=== PATIENT | male | born 1935 ===

== ENCOUNTER 2016-12-30 16:59 | Inpatient (IN) | payer MEDICARE ==
[2016-12-30] MEDS ORDERED: LISINOPRIL-HCT1 EAC3 PO (17:26)
[2016-12-30] MEDS ORDERED: ZOCOR20 M1 PO (17:27)
[2016-12-30] MEDS ORDERED: NORVASC10 M2 PO (17:27)
[2016-12-30 17:39] LABS: BASO % 0.1 % (0-2); EOS % 1.3 % (0-7); EOSINOPHIL ABSOLUTE COUNT 0.1 tho/cmm (0.0-0.7); HCT-HEMATOCRIT 40.8 % (36.0-53.5); HGB-HEMOGLOBIN 14.5 gm/dl (13.5-17.0); IMMATURE GRANULOCYTES ABSOLUTE 0.01 tho/cmm (0-0.03); IMMATURE GRANULOCYTES PERCENT 0.1 % (0-0.3); LYMPH % 14.5 % (20-45); MCHC MEAN CORPUSCULAR HGB CONC 35.5 % (32.0-36.0); MCV (MEAN CELL VOLUME) 90.1 fl (82.0-96.0); MEAN PLATELET VOLUME 8.2 cmc (9.4-12.4); MONO % 10.9 % (0-12); MONOCYTE ABSOLUTE COUNT 0.8 tho/cmm (0.0-1.2); NEUTROPHILS % 73.1 % (40-80); PLATELET COUNT 254 tho/cmm (150-450); RED BLOOD COUNT 4.53 mil/cmm (4.40-5.70); RED CELL DISTRIBUTION WIDTH 12.4 % (12.4-16.4); WHITE BLOOD COUNT 6.9 tho/cmm (4.0-10.0)
[2016-12-30 18:01] LABS: ALB/GLOB RATIO 0.8 (0.8-2.0); ALBUMIN 3.8 g/dl (3.5-5.0); ALKALINE PHOSPHATASE 42 U/L (33-138); ALT/SGPT 22 U/L (12-78); BILIRUBIN,TOTAL 0.6 mg/dl (0.0-1.5); BLOOD UREA NITROGEN 15 mg/dl (6-24); CALCIUM 8.8 mg/dl (8.5-10.5); CARBON DIOXIDE-VENOUS 27 mmol/L (22-32); CHLORIDE 95 mmol/l (96-110); CREATININE 1.01 mg/dl (0.60-1.30); GLUCOSE 96 mg/dL (70-110); LIPASE 173 U/L (73-393); SODIUM 133 mmol/L (135-145); eGFR VALUE FOR BLACK 82 mL/Min
[2016-12-30 18:02] LABS: ESR-ERYTHROCYTE SED RATE 26 mm/hr (0-20)
[2016-12-30 18:05] LABS: TSH-THYROID STIMULATING HORM. 1.99 uIU/ml (0.40-3.80)
[2016-12-30 18:08] LABS: ANION GAP 15 mmol/L (0-20); AST/SGOT 28 U/L (10-40); POTASSIUM 4.2 mmol/L (3.7-5.1)
[2016-12-30 18:10] LABS: URINE BILIRUBIN NEGATIVE (NEG); URINE BLOOD SMALL (NEG); URINE GLUCOSE (UA) NEGATIVE (NEG); URINE KETONE NEGATIVE (NEG); URINE LEUKOCYTE ESTERASE NEGATIVE (NEG); URINE NITRITE NEGATIVE (NEG); URINE PROTEIN LARGE (NEG)
[2016-12-30 18:12] LABS: URINE APPEARANCE HAZY; URINE COLOR YELLOW
[2016-12-30 18:13] LABS: URINE EPITHELIAL CELLS RARE /[HPF] (0-10); URINE RBC RARE /[HPF] (0-5); URINE WBC RARE /[HPF] (0-5)
[2016-12-30] MEDS ORDERED: VITAMIN D400 UNI3 (22:43)
[2016-12-30] MEDS ORDERED: ASPIRIN EC81 MG PO (22:43)
[2016-12-31 05:25] LABS: HCT-HEMATOCRIT 40.8 % (36.0-53.5); HGB-HEMOGLOBIN 14.6 gm/dl (13.5-17.0); LYMPH % 14.9 % (20-45); LYMPH ABSOLUTE COUNT 0.5 tho/cmm (0.8-4.5); MCH (MEAN CORPUSCULAR HGB) 32.2 pg (28.0-32.0); MCHC MEAN CORPUSCULAR HGB CONC 35.8 % (32.0-36.0); MCV (MEAN CELL VOLUME) 89.9 fl (82.0-96.0); MEAN PLATELET VOLUME 8.1 cmc (9.4-12.4); MONO % 0.3 % (0-12); NEUTROPHIL ABSOLUTE COUNT 2.6 tho/cmm (1.6-8.0); NEUTROPHIL-AUTOMATED 2.6 tho/cmm (1.6-8.0); NEUTROPHILS % 84.8 % (40-80); PLATELET COUNT 262 tho/cmm (150-450); RED BLOOD COUNT 4.54 mil/cmm (4.40-5.70); RED CELL DISTRIBUTION WIDTH 12.3 % (12.4-16.4)
[2016-12-31 05:34] LABS: ANION GAP 13 mmol/L (0-20); BLOOD UREA NITROGEN 12 mg/dl (6-24); CALCIUM 8.8 mg/dl (8.5-10.5); CARBON DIOXIDE-VENOUS 25 mmol/L (22-32); CHLORIDE 100 mmol/l (96-110); CREATININE 0.99 mg/dl (0.60-1.30); GLUCOSE 133 mg/dL (70-110); POTASSIUM 4.1 mmol/L (3.7-5.1); SODIUM 134 mmol/L (135-145); eGFR VALUE FOR BLACK 84 mL/Min
[2016-12-31 05:41] LABS: PROTHROMBIN TIME 11.4 SECONDS (9.0-13.6)
[2016-12-31 05:47] LABS: WHITE BLOOD COUNT 3.1 tho/cmm (4.0-10.0)
[2017-01-01 05:59] LABS: HGB-HEMOGLOBIN 13.6 gm/dl (13.5-17.0); IMMATURE GRANULOCYTES ABSOLUTE 0.01 tho/cmm (0-0.03); IMMATURE GRANULOCYTES PERCENT 0.2 % (0-0.3); LYMPH % 4.4 % (20-45); LYMPH ABSOLUTE COUNT 0.3 tho/cmm (0.8-4.5); MCH (MEAN CORPUSCULAR HGB) 31.8 pg (28.0-32.0); MCHC MEAN CORPUSCULAR HGB CONC 34.9 % (32.0-36.0); MCV (MEAN CELL VOLUME) 91.1 fl (82.0-96.0); MEAN PLATELET VOLUME 8.7 cmc (9.4-12.4); MONO % 0.9 % (0-12); MONOCYTE ABSOLUTE COUNT 0.1 tho/cmm (0.0-1.2); NEUTROPHIL ABSOLUTE COUNT 6.2 tho/cmm (1.6-8.0); NEUTROPHIL-AUTOMATED 6.2 tho/cmm (1.6-8.0); NEUTROPHILS % 94.5 % (40-80); PLATELET COUNT 237 tho/cmm (150-450); RED BLOOD COUNT 4.28 mil/cmm (4.40-5.70); RED CELL DISTRIBUTION WIDTH 12.6 % (12.4-16.4)
[2017-01-01 06:12] LABS: WHITE BLOOD COUNT 6.6 tho/cmm (4.0-10.0)
[2017-01-01 06:32] LABS: ALBUMIN 3.1 g/dl (3.5-5.0); ALT/SGPT 21 U/L (12-78); BLOOD UREA NITROGEN 14 mg/dl (6-24); CALCIUM 8.4 mg/dl (8.5-10.5); CARBON DIOXIDE-VENOUS 24 mmol/L (22-32); CHLORIDE 104 mmol/l (96-110); CREATININE 0.88 mg/dl (0.60-1.30); GLUCOSE 123 mg/dL (70-110); SODIUM 136 mmol/L (135-145); eGFR VALUE FOR BLACK >90 mL/Min
[2017-01-01 06:34] LABS: ALB/GLOB RATIO 0.7 (0.8-2.0); ALKALINE PHOSPHATASE 37 U/L (33-138)
[2017-01-01 06:40] LABS: ANION GAP 12 mmol/L (0-20); AST/SGOT 19 U/L (10-40); BILIRUBIN,TOTAL 0.2 mg/dl (0.0-1.5); POTASSIUM 4.2 mmol/L (3.7-5.1)
[2017-01-02] MEDS ORDERED: ZOFRAN4 M2 PO (15:22)
[2017-01-02] MEDS ORDERED: DECADRON PO (15:22)
[2017-01-02] MEDS ORDERED: TED HOSE (15:23)
== END 2017-01-02 16:10 | DRG 180 ==
LOC: EDMED 16:59 → EMR2 20:47 → CAR1 21:30
PROVIDERS: Emergency Medicine; Internal Medicine; ADMIT Hospitalist
PROC: 0BB83ZX Excision of Left Upper Lobe Bronchus, Percutaneous Approach, Diagnostic (ICD-10-PCS; principal; 2016-12-30)
DX: C34.32 Malignant neoplasm of lower lobe, left bronchus or lung (principal); G93.6 Cerebral edema; J95.811 Postprocedural pneumothorax; I10 Essential (primary) hypertension; E78.5 Hyperlipidemia, unspecified; Y84.8 Other medical procedures as the cause of abnormal reaction of the patient, or of later complication, without mention of misadventure at the time of the procedure; Y92.234 Operating room of hospital as the place of occurrence of the external cause; G93.9 Disorder of brain, unspecified; K21.9 Gastro-esophageal reflux disease without esophagitis; R63.4 Abnormal weight loss; D72.819 Decreased white blood cell count, unspecified; F41.9 Anxiety disorder, unspecified; Z68.21 Body mass index [BMI] 21.0-21.9, adult
CPT/HCPCS: A9577; G8978-GP-CK; G8979-GP-CJ; G8987-GO-CJ; G8988-GO-CK; G8989-GO-CJ; J1100; J2250; J2405; J3010; J7030; Q9967